=== PATIENT | male | born 1960 | race Caucasian/White ===

== ENCOUNTER → 2022-04-23 | Outpatient (CLI) | payer BC, SELFPAY ==
--- NOTE | 2022-04-23 07:49 | CT_ITS ---
HISTORY: SCREENING. Former smoker. TECHNIQUE: Helically acquired images were obtained of the chest without contrast. A radiation dose optimization technique was used for this scan. 893 images. COMPARISON: None. FINDINGS: LARGE AIRWAYS: Patent. LUNGS: Minimal linear scarring in the left lower lobe. Mild bronchiectasis and hyperinflation. PLEURA: No pneumothorax or significant pleural effusion. HEART/PERICARDIUM: Heart within normal limits in size. Coronary artery calcification present. No pericardial effusion. VESSELS: Thoracic aorta nondilated. MEDIASTINUM/HILARIO: No pathologically enlarged adenopathy. UPPER ABDOMEN: 1.5 cm calcified gallstone. BONES: Ankylosis of the spine. CT/Low Dose CT Lung Screening IMPRESSION: Hyperinflation of the lungs with minimal left lower lobe scarring. Lung-RADS category 1: Negative. Continue annual screening with low dose CT. Cholelithiasis. Ankylosis of the spine. Electronically Signed: Guerline Dickinson MD at 14:54 EDT ,
== END | disposition home or self-care (01) ==
LOC: CT 07:47
PROVIDERS: PCP Nurse Practitioner Primary Care; Referring Provider Nurse Practitioner Primary Care; Visit Provider Nurse Practitioner Primary Care
DX: Z12.2 Encounter for screening for malignant neoplasm of respiratory organs (principal); Z87.891 Personal history of nicotine dependence
CPT/HCPCS: 71271